=== PATIENT | male | born 1980 | race Caucasian/White ===

== ENCOUNTER 2017-01-08 14:59 | Inpatient (IN) ==
[2017-01-08] MEDS ORDERED: SODIUM CHLORIDE 0.9% 1,000 ML IV STA ×2 (15:19→18:20)
[2017-01-08 15:42] LABS: Basophils % 0.2 % (0.0-0.8); Hematocrit 41.3 VOL% (42.0-52.0); Hemoglobin 14.7 GM/DL (14.0-18.0); Immature Granulocytes % 0.5 %; Immature Granulocytes Absolute 0.03 #; Lymphocytes # 0.7 10*3/uL (1.4-4.0); Lymphocytes % 12.2 % (21.2-54.2); Mean Corpuscular HGB Conc 35.6 GM/DL (32-36); Mean Corpuscular Hemoglobin 33 PG (27-34); Mean Corpuscular Volume 93.7 FL (87-102); Mean Platelet Volume 8.9 FL (9.6-12.0); Monocytes # 0.6 10*3/uL (0.11-0.8); Monocytes % 10.8 % (1.7-12.7); Neutrophils # 4.5 10*3/uL (1.4-7.4); Neutrophils % 76.3 % (38.7-73.9); Platelet Count 138 T/CUMM (130-400); Red Blood Count 4.41 MC/CUMM (3.8-5.5); Red Cell Distribution Width 12.7 % (9.3-17.3); White Blood Count 5.9 T/CUMM (4-12)
[2017-01-08 16:06] LABS: Albumin 3.7 G/DL (3.4-5.0); Bilirubin,Total 0.5 MG/DL (0.2-1.0); Lactic Acid 2.3 MMOL/L (0.4-2.0); Osmolality,Calculated 282.3 MOS/KG (273-304); Potassium 4.3 MMOL/L (3.5-5.1); Total Protein 7.7 G/DL (6.4-8.3)
[2017-01-08 16:52] LABS: Apearance,Urine CLEAR (Clear); Bilirubin,Urine Negative (Negative); Blood, Urine Negative (Negative); Glucose,Urine (UA) Negative (Negative); Ketones,Urine 5 mg/dL (Negative); Mucus,Urine Occasional /LPF (Occasional); Nitrite,Urine Negative (Negative); Protein,Urine 30 MG/DL; RBC,Urine <1 /HPF (0-4); Urine Color Yellow (Yellow); Urine Specific Gravity 1.024 (1.001-1.035); Urine Urobilinogen < 2.0 EU/DL (0.2-1.0); WBC,Urine <1 /HPF (0-6)
[2017-01-08 17:13] LABS: INR 1.1; PT Patient Result 11.4 SECS; Partial Thromboplastin Time 23.7 SECS (0-40)
[2017-01-08] MEDS ORDERED: MORPHINE 2 MG/1 ML SYRINGE IV STA (17:36)
[2017-01-08] MEDS ORDERED: ONDANSETRON 4 MG/2 ML VIAL IV STA (17:36)
[2017-01-08] MEDS ORDERED: ONDANSETRON 4 MG/2 ML VIAL ONE (17:41)
[2017-01-08] MEDS ORDERED: PIPERACILLIN/TAZOBACTAM 3,375 MG VIAL IV ONE (17:41)
[2017-01-08] MEDS ORDERED: MORPHINE 2 MG/1 ML SYRINGE ONE (17:41)
[2017-01-08] MEDS: PIPERACILLIN/TAZOBACTAM 3,375 MG in SODIUM CHLORIDE 0.9% 100 ML IV SCH (17:50)
[2017-01-08] MEDS ORDERED: MORPHINE 2 MG/1 ML SYRINGE IV PRN (18:10)
[2017-01-08] MEDS ORDERED: THIAMINE INJ 100 MG, FOLIC ACID INJ 1 MG, MAGNESIUM SULF INJ 2 GM, MULTIVITAMIN INJ 10 ... IV SCH (18:30)
[2017-01-08 19:08] LABS: Triglycerides 327 MG/DL (2-150)
[2017-01-08] MEDS: HYDROmorphone 2 MG/1 ML VIAL IV PRN (21:44)
[2017-01-08] MEDS: THIAMINE INJ 100 MG, FOLIC ACID INJ 1 MG, MULTIVITAMIN INJ 10 ML in DEXTROSE 5% NACL 0.... IV SCH (21:49)
[2017-01-08 22:31] LABS: Barbiturates Screen,Urine Negative (Negative); Benzodiazepines Screen,Urine Negative (Negative); Cannabinoid Screen,Urine Positive (Negative); Opiate Screen,Urine Negative (Negative); Phencyclidine Screen,Urine Negative (Negative)
[2017-01-09] MEDS: PIPERACILLIN/TAZOBACTAM 3,375 MG in SODIUM CHLORIDE 0.9% 100 ML IV SCH ×3 (01:46→17:56)
[2017-01-09] MEDS: HYDROmorphone 2 MG/1 ML VIAL IV PRN ×6 (01:47→22:07)
[2017-01-09 06:23] LABS: Basophils % 0.2 % (0.0-0.8); Hematocrit 39.9 VOL% (42.0-52.0); Hemoglobin 14.2 GM/DL (14.0-18.0); Immature Granulocytes % 0.6 %; Immature Granulocytes Absolute 0.04 #; Lymphocytes % 15.6 % (21.2-54.2); Mean Corpuscular HGB Conc 35.6 GM/DL (32-36); Mean Corpuscular Hemoglobin 34 PG (27-34); Mean Corpuscular Volume 94.5 FL (87-102); Mean Platelet Volume 9.1 FL (9.6-12.0); Monocytes # 0.7 10*3/uL (0.11-0.8); Monocytes % 11.2 % (1.7-12.7); Neutrophils # 4.6 10*3/uL (1.4-7.4); Neutrophils % 72.4 % (38.7-73.9); Platelet Count 109 T/CUMM (130-400); Red Blood Count 4.22 MC/CUMM (3.8-5.5); Red Cell Distribution Width 12.5 % (9.3-17.3); White Blood Count 6.4 T/CUMM (4-12)
[2017-01-09 06:46] LABS: Calcium 8.8 MG/DL (8.5-10.1); Osmolality,Calculated 274.5 MOS/KG (273-304); Potassium 3.4 MMOL/L (3.5-5.1)
[2017-01-09 06:50] LABS: Albumin 3.7 G/DL (3.4-5.0); Bilirubin,Total 1.4 MG/DL (0.2-1.0); Calcium 8.7 MG/DL (8.5-10.1); Osmolality,Calculated 274.5 MOS/KG (273-304); Potassium 3.4 MMOL/L (3.5-5.1); Total Protein 7.7 G/DL (6.4-8.3)
[2017-01-09] MEDS ORDERED: THIAMINE 200 MG/2 ML VIAL IV SCH (09:00)
[2017-01-09] MEDS: SODIUM CHLORIDE 0.9% 1,000 ML IV SCH ×3 (10:00→15:39)
[2017-01-09] MEDS: PANTOPRAZOLE 40 MG VIAL IV SCH (10:01)
[2017-01-09] MEDS: LORazepam 2 MG/1 ML VIAL IV PRN ×2 (10:10→14:09)
[2017-01-09] MEDS: THIAMINE INJ 100 MG, FOLIC ACID INJ 1 MG, MULTIVITAMIN INJ 10 ML in DEXTROSE 5% NACL 0.... IV SCH (22:51)
[2017-01-10] MEDS: PIPERACILLIN/TAZOBACTAM 3,375 MG in SODIUM CHLORIDE 0.9% 100 ML IV SCH ×3 (00:49→17:44)
[2017-01-10] MEDS: SODIUM CHLORIDE 0.9% 1,000 ML IV SCH ×5 (00:50→18:24)
[2017-01-10] MEDS: HYDROmorphone 2 MG/1 ML VIAL IV PRN ×5 (02:13→22:13)
[2017-01-10] MEDS ORDERED: DOCUSATE SODIUM 100 MG CAPSULE PO ONE (05:00)
[2017-01-10 05:29] LABS: Basophils % 0.1 % (0.0-0.8); Eosinophils % 0.3 % (0.00-10.9); Hematocrit 40.2 VOL% (42.0-52.0); Hemoglobin 14.2 GM/DL (14.0-18.0); Immature Granulocytes % 0.7 %; Immature Granulocytes Absolute 0.05 #; Lymphocytes # 0.6 10*3/uL (1.4-4.0); Lymphocytes % 8.6 % (21.2-54.2); Mean Corpuscular HGB Conc 35.3 GM/DL (32-36); Mean Corpuscular Hemoglobin 33 PG (27-34); Mean Corpuscular Volume 93.7 FL (87-102); Monocytes # 0.6 10*3/uL (0.11-0.8); Monocytes % 7.9 % (1.7-12.7); Neutrophils % 82.4 % (38.7-73.9); Platelet Count 113 T/CUMM (130-400); Red Blood Count 4.29 MC/CUMM (3.8-5.5); Red Cell Distribution Width 12.2 % (9.3-17.3); White Blood Count 7.3 T/CUMM (4-12)
[2017-01-10 05:59] LABS: Calcium 8.6 MG/DL (8.5-10.1); Potassium 2.8 MMOL/L (3.5-5.1)
[2017-01-10] MEDS ORDERED: MAGNESIUM CITRATE 300 ML BOTTLE PO ONE ×2 (08:27→15:00)
[2017-01-10] MEDS ORDERED: DOCUSATE SODIUM 100 MG CAPSULE PO SCH (09:00)
[2017-01-10] MEDS: PANTOPRAZOLE 40 MG VIAL IV SCH (09:06)
[2017-01-10] MEDS: ONDANSETRON 4 MG/2 ML VIAL IV PRN ×2 (09:07→13:55)
[2017-01-10] MEDS: POTASSIUM CHLORIDE RIDER 10 MEQ in PREMIX 1 EACH IV PRN ×4 (12:33→17:44)
[2017-01-10] MEDS: LORazepam 2 MG/1 ML VIAL IV PRN (13:55)
[2017-01-10] MEDS: THIAMINE INJ 100 MG, FOLIC ACID INJ 1 MG, MULTIVITAMIN INJ 10 ML in DEXTROSE 5% NACL 0.... IV SCH (17:43)
[2017-01-10] MEDS: DOCUSATE SODIUM 100 MG CAPSULE PO SCH (22:13)
[2017-01-11] MEDS: SODIUM CHLORIDE 0.9% 1,000 ML IV SCH ×5 (01:07→23:19)
[2017-01-11] MEDS: PIPERACILLIN/TAZOBACTAM 3,375 MG in SODIUM CHLORIDE 0.9% 100 ML IV SCH ×3 (01:08→16:33)
[2017-01-11] MEDS: POTASSIUM CHLORIDE RIDER 10 MEQ in PREMIX 1 EACH IV PRN ×3 (02:20→06:16)
[2017-01-11] MEDS: HYDROmorphone 2 MG/1 ML VIAL IV PRN ×2 (02:20→20:13)
[2017-01-11 06:43] LABS: Basophils % 0.1 % (0.0-0.8); Eosinophils # 0.1 10*3/uL (0.0-0.87); Eosinophils % 1.2 % (0.00-10.9); Hematocrit 38.9 VOL% (42.0-52.0); Immature Granulocytes % 0.5 %; Immature Granulocytes Absolute 0.04 #; Lymphocytes # 0.6 10*3/uL (1.4-4.0); Lymphocytes % 7.8 % (21.2-54.2); Mean Corpuscular Hemoglobin 34 PG (27-34); Mean Corpuscular Volume 93.1 FL (87-102); Mean Platelet Volume 9.7 FL (9.6-12.0); Monocytes # 0.6 10*3/uL (0.11-0.8); Monocytes % 8.2 % (1.7-12.7); Neutrophils # 6.1 10*3/uL (1.4-7.4); Neutrophils % 82.2 % (38.7-73.9); Platelet Count 120 T/CUMM (130-400); Red Blood Count 4.18 MC/CUMM (3.8-5.5); Red Cell Distribution Width 12.1 % (9.3-17.3); White Blood Count 7.4 T/CUMM (4-12)
[2017-01-11 07:06] LABS: Calcium 8.7 MG/DL (8.5-10.1); Potassium 3.7 MMOL/L (3.5-5.1)
[2017-01-11] MEDS: PANTOPRAZOLE 40 MG VIAL IV SCH (08:36)
[2017-01-11] MEDS: DOCUSATE SODIUM 100 MG CAPSULE PO SCH ×2 (09:34→20:13)
[2017-01-11] MEDS: THIAMINE INJ 100 MG, FOLIC ACID INJ 1 MG, MULTIVITAMIN INJ 10 ML in DEXTROSE 5% NACL 0.... IV SCH (16:45)
[2017-01-12] MEDS: HYDROmorphone 2 MG/1 ML VIAL IV PRN ×2 (00:13→05:04)
[2017-01-12] MEDS: PIPERACILLIN/TAZOBACTAM 3,375 MG in SODIUM CHLORIDE 0.9% 100 ML IV SCH ×2 (00:13→09:48)
[2017-01-12] MEDS: SODIUM CHLORIDE 0.9% 1,000 ML IV SCH ×2 (03:08→12:35)
[2017-01-12] MEDS: PANTOPRAZOLE 40 MG VIAL IV SCH (09:48)
[2017-01-12] MEDS: DOCUSATE SODIUM 100 MG CAPSULE PO SCH (09:52)
[2017-01-12 12:13] VITALS: BP 153/102
== END 2017-01-12 12:50 | disposition home or self-care (01) | DRG 440 ==
LOC: N.ED 14:59 → SUATTDRO 17:03 → N.EDINP 17:03 → N.5E 18:09
PROVIDERS: ADMIT Internal Medicine Nephrology; ATTEND Internal Medicine